=== PATIENT | female | born 1995 | race Caucasian/White ===

== ENCOUNTER 2017-03-31 17:57 | Emergency (ER) | payer MEDICAID ==
[~2017-03-31] VITALS: Ht 162.6 cm; Wt 77.1 kg
[2017-03-31 18:16] VITALS: BP 145/78
--- NOTE | 2017-03-31 19:11 | NUR ---
PT TAKEN TO [facility]
--- NOTE | 2017-03-31 19:19 | NUR ---
Dr. Otto evaluating patient
[2017-03-31] MEDS ORDERED: DICYCLOMINE HCL LIQUID 20 MG, ALUMINUM HYD/MAG/SIMETHICONE 30 ML, LIDOCAINE VISCOUS 2% ... PO ONE ×3 (19:30)
--- NOTE | 2017-03-31 19:45 | NUR ---
21Y/F PT. PRESENTS TO ER W/C/O MID-BACK PAIN X5 DAYS. PT DENIES ANY FALL OR INJURY. AAO X4, AMBULATORY WITH STEADY GAIT. NO APPARENT INJURY. NO S/SX OF DISTRESS AT THIS TIME. ER MADE AWARE OF PT. STATUS.
[2017-03-31 20:06] LABS: BASOPHILS # (AUTO) 0.3 K/uL (0.00-0.22); EOSINOPHILS # (AUTO) 0.1 K/uL (0-0.4); HEMATOCRIT 46.2 % (36-48); HEMOGLOBIN 15.4 g/dL (12.0-16.0); LYMPHOCYTES # (AUTO) 3.6 K/uL (2.5-16.5); MEAN CORPUSCULAR HEMOGLOBIN 30 pg (27-31); MEAN CORPUSCULAR HGB CONC 34 g/dL (33-37); MEAN CORPUSCULAR VOLUME 89 fL (80-94); MONOCYTES # (AUTO) 0.9 K/uL (0.8-1.0); NEUTROPHILS # (AUTO) 7.9 K/uL (1.8-7.7); PLATELET COUNT (AUTO) 324 K/uL (140-450); RED BLOOD CELL COUNT(AUTO) 5.18 MIL/uL (4.20-5.40); RED CELL DISTRIBUTION WIDTH 11.8 % (11.6-13.7); WHITE BLOOD COUNT (AUTO) 12.8 K/uL (4.8-10.8)
--- NOTE | 2017-03-31 20:07 | NUR ---
Patient discharged with v/s stable. Written and verbal after care instructions given and explained. Patient alert, oriented and verbalized understanding of instructions. Ambulatory with steady gait. All questions addressed prior to discharge. ID band removed. Patient advised to follow up with PMD. Rx of MAALOX, TYLENOL 500 MG given. Patient educated on indication of medication including possible reaction and side effects. Opportunity to ask questions provided and answered.
[2017-03-31 20:19] LABS: ANION GAP 11.3 (8-16); CARBON DIOXIDE 28.8 mmol/L (21-32); CREATININE 0.8 mg/dL (0.6-1.3); POTASSIUM 4.1 mmol/L (3.5-5.1)
[2017-03-31 20:30] LABS: ALBUMIN 4.2 g/dL (3.4-5.0); TOTAL BILIRUBIN 0.3 mg/dL (0.0-1.0)
[2017-03-31 21:08] VITALS: BP 119/84
== END 2017-03-31 20:07 | disposition home or self-care (01) ==
LOC: MED 17:57
DX: M54.6 Pain in thoracic spine (principal); R10.9 Unspecified abdominal pain; R11.2 Nausea with vomiting, unspecified; R19.7 Diarrhea, unspecified
CPT/HCPCS: 36415; 80053; 81002; 81025; 83690; 85025; 99284

== ENCOUNTER 2018-09-22 17:32 | Emergency (ER) | payer SELFPAY ==
[~2018-09-22] VITALS: Ht 162.6 cm; Wt 77.1 kg
[2018-09-22 17:42] VITALS: BP 120/68
--- NOTE | 2018-09-22 19:05 | NUR ---
PATIENT AMBULATED TO BED 5
--- NOTE | 2018-09-22 19:10 | NUR ---
Pt report given to SLAVA Howard. Transfer of care at this time.
--- NOTE | 2018-09-22 19:10 | NUR ---
23/F PRESENTS TO ED WITH FAMILY, C/O 01/19 PRESSURE-LIKE CONSTANT L WRIST PAIN, X3 WEEKS. -REDNESS, -SWELLING. DENIES TRAUMA/INJURY. 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 DENIES MED HX OR RX.
--- NOTE | 2018-09-22 20:18 | NUR ---
Dr. Fernandez evaluating patient at bedside.
[2018-09-22 20:28] VITALS: BP 127/80
== END 2018-09-22 20:28 | disposition home or self-care (01) ==
LOC: MED 17:32
DX: S60.212A Contusion of left wrist, initial encounter (principal); X58.XXXA Exposure to other specified factors, initial encounter; Y93.89 Activity, other specified; Y92.89 Other specified places as the place of occurrence of the external cause; Y99.8 Other external cause status
CPT/HCPCS: 99283